=== PATIENT | male | born 1955 | race Caucasian/White ===

== ENCOUNTER 2020-12-10 18:34 | Emergency (ER) | payer MEDICARE, OTHER ==
--- NOTE | 2020-12-10 19:14 | RAD ---
Exam:3 views left ankle HISTORY: Pain COMPARISON: None FINDINGS: Possible nondisplaced fracture involving the medial aspect of the distal fibula. There does appear to be mild soft tissue swelling. IMPRESSION: Possible nondisplaced distal medial fibula fracture
[2020-12-10] MEDS ORDERED: Ketorolac Tromethamine 30 MG/ML VIAL ONE (19:26)
== END 2020-12-10 19:55 | disposition home or self-care (01) ==
LOC: ERS 18:34
DX: S82.832A Other fracture of upper and lower end of left fibula, initial encounter for closed fracture (principal); I11.0 Hypertensive heart disease with heart failure; I50.9 Heart failure, unspecified; E78.5 Hyperlipidemia, unspecified; Z87.891 Personal history of nicotine dependence; V29.9XXA Motorcycle rider (driver) (passenger) injured in unspecified traffic accident, initial encounter
CPT/HCPCS: 96372; J1885